=== PATIENT | female | born 1955 | race Caucasian/White ===

== ENCOUNTER 2024-07-15 09:24 | Emergency (ER) | payer BC, SELFPAY ==
[2024-07-15 09:27] VITALS: BP 172/115
--- NOTE | 2024-07-15 10:03 | ED.GENMED ---
History of Present Illness
General
Chief Complaint: Fall
Time Seen by Provider: 07/15/24 09:41
History of Present Illness
History of Present Illness:
Patient is a 68-year-old woman with history of hypertension presenting to the emergency room after a fall. Patient states that she was walking her dog when her dog pulled her and she fell backwards hitting her head. She did not lose consciousness.
He is not on a blood thinner. She denies any neck pain numbness tingling or weakness. She was assisted off the ground. She does have a mild headache but denies any nausea vomiting vision changes. There was no bleeding on scene.
Past History
Past History
ED Past Medical History: HTN and Hypothyroidism
Social History
Tobacco: Non-smoker
Alcohol: None
Drug: None
Personal:
Living: with family
Phy Exam
Physical Exam
Physical Exam:
GENERAL: no acute distress
HEENT: Posterior hematoma, extraocular muscles intact, no signs of entrapment, dentition intact, no other obvious trauma
NECK: no midline tenderness, normal range of motion, no other obvious trauma
BACK: no midline tenderness, no other obvious trauma
CHEST: no tenderness, no flail segment, no subcutaneous emphysema, no other obvious trauma
LUNGS: clear to auscultation bilaterally
CARDIOVASCULAR: regular rate and rhythm
ABDOMEN: soft, non-tender, no masses, no other obvious trauma
PELVIS: stable, no obvious injury
EXTREMITIES: moving all extremities, distal pulses intact, no other obvious trauma
NEUROLOGIC: awake, alert x 3, no focal deficits
Course
Orders/Labs/Results
Orders:
Orders
07/15/24 09:55
CT Cervical Spine W/o Iv Contr Urgent
Comment:
Reason For Exam: fall
CT Head W/o Iv Contrast Urgent
Comment:
Reason For Exam: fall
07/15/24 10:56
Acetaminophen [Tylenol] 650 mg PO NOW STA
Vital Signs
Initial and Last Documented VS:
Initial Vital Signs
Temp Pulse Resp BP Pulse Ox
98.8 F 92 16 172/115 97
07/15/24 09:27 07/15/24 09:27 07/15/24 09:27 07/15/24 09:27 07/15/24 09:27
Last Documented Vital Signs
Temp Pulse Resp BP Pulse Ox
98.8 F 92 16 172/115 97
07/15/24 09:27 07/15/24 09:27 07/15/24 09:27 07/15/24 09:27 07/15/24 09:27
MDM/Problems Addressed
Differential Diagnosis Includes:
Patient is a 68-year-old woman presenting to the emergency department after mechanical fall where she hit her head. Vitals are notable for hypertension and exam does show posterior hematoma with no other signs of traumatic injuries. Concern for
traumatic intracranial injury. Will obtain CT scan. I did offer pain control however patient declined at this time
*Critical Care Note
Total Time (30-74mins, 75-104mins- exclusive of procedures): Not Applicable
Update Note
Update Note:
On reevaluation patient resting comfortably. Patient is agreeable to Tylenol for her headache at this time. CT scan of the head per my interpretation with no obvious intracranial hemorrhage. CT C-spine did show incidental thyroid nodule. Patient
is aware of this and has been followed by her primary care doctor. Strict return precautions given such as new vision changes numbness tingling weakness or worsening/persistent headache. Will discharge at this time
ED Attending Note
-
Portions of this chart may have been created with voice recognition software.� Occasional wrong word or��sound alike� substitutions may have occurred due to the inherent limitations of voice recognition software.
Discharge Plan
Departure
Patient Disposition: Home (Routine Discharge)
Date of Disposition: 07/15/24
Time of Disposition: 10:54
Patient with high blood pressure during this ER visit?: Yes
Discharge Problem:
Fall, Hematoma of scalp
Instructions: Head Injury in Adults (DC)
Prescriptions:
No Action
multivitamin [Daily Multiple] 1 EACH tablet
1 ea PO DAILY
ibuprofen 200 MG capsule
200 mg PO PRN PRN (Reason: pain)
amlodipine-benazepril 1 CAPSULE capsule
1 cap PO DAILY
levothyroxine 50 MCG tablet
50 mcg PO DAILY
calcium carbonate-vitamin D3 1 EACH tablet
1 ea PO DAILY
Referrals:
UNKNOWN,NO INTERVIEW [Family Provider] -
Activity Restrictions/Additional Instructions:
When a patient comes into the Emergency Department, many diagnostic studies such as x-rays & CT Scans are completed to identify injuries. During these diagnostic studies, there are sometimes things like cysts, nodules, tumors, etc. that are
'incidentally found' and seen on these studies. No further workup was required during your hospitalization for your incidental findings, but please follow-up with your Primary Care Physician/Specialist regarding the below incidental findings. Your
Primary Care Physician/Specialist will instruct you/guide you through any further workup.
Your incidental findings:
There is a 5 mm hyperdense nodule within the right hemithyroid. Recommend nonemergent thyroid ultrasound for further evaluation if not previously evaluated.
Interventions
Interventions:
*Risk Screen - Suicide Last Done: 07/15/24 09:29
*Neglect/Abuse Screening Last Done: 07/15/24 09:29
Discharge Date and Time
Print Language: ETHIOPIAN
[2024-07-15] MEDS: TYLENOL 650 MG PO (11:40)
== END 2024-07-15 11:00 | disposition home or self-care (01) ==
LOC: EMR 09:24
PROVIDERS: EMERGENCY PHYSICIAN Student in an Organized Health Care Education/Training Program
DX: S00.03XA Contusion of scalp, initial encounter (principal); W19.XXXA Unspecified fall, initial encounter; Y93.K1 Activity, walking an animal; I10 Essential (primary) hypertension; E03.9 Hypothyroidism, unspecified
CPT/HCPCS: 99284; 70450; 72125

== ENCOUNTER 2024-09-14 18:46 | Emergency (ER) | payer OTHER, SELFPAY ==
[2024-09-14 19:04] VITALS: BP 166/105
--- NOTE | 2024-09-14 22:02 | ED.GENMED ---
History of Present Illness
General
Chief Complaint: Ear Problem
Time Seen by Provider: 09/14/24 21:45
History of Present Illness
History of Present Illness:
69-year-old female presenting with bilateral ear pain right greater than left for the past 1 week. Patient reports tinnitus and hearing loss in her right ear. Patient states that she had blood come out of her right ear 3 days ago which is since
resolved. Patient states that she was seen in urgent care who prescribed eardrops and oral antibiotics which she has been taking with minimal relief. Patient denies fever, sore throat, nasal congestion, or trauma to area.
Past History
Past History
ED Past Medical History: HTN and Hypothyroidism
Social History
Tobacco: Non-smoker
Alcohol: None
Drug: None
Personal:
Living: with family
Phy Exam
Physical Exam
Physical Exam:
General: Alert, no acute distress
Head: NCAT
Eyes: clear conjunctiva
ENT: Perforation right TM with bloody discharge. No visualized perforation left TM, no erythema, no discharge. Posterior oropharynx clear with no erythema. No nasal congestion or rhinorrhea. no mastoid tenderness bilaterally
Neck: supple
Cardiac: regular rate and rhythm, no murmur
Lungs: clear to auscultation bilaterally. No wheezes, rales, or rhonchi. Speaking full unlabored sentences. No respiratory distress.
MSK: no lower extremity edema bilaterally. No deformity
Skin: warm, dry
Neuro: Alert and oriented x3. no focal deficits
Course
Vital Signs
Initial and Last Documented VS:
Initial Vital Signs
Temp Pulse Resp BP Pulse Ox
98.3 F 80 20 166/105 97
09/14/24 19:04 09/14/24 19:04 09/14/24 19:04 09/14/24 19:04 09/14/24 19:04
Last Documented Vital Signs
Temp Pulse Resp BP Pulse Ox
98.3 F 80 20 166/105 97
02/14/25 19:04 09/14/24 19:04 09/14/24 19:04 09/14/24 19:04 09/14/24 19:04
MDM/Problems Addressed
MDM/Problems Addressed:
69-year-old female presenting with bilateral ear pain right greater than left for the past 1 week. Perforated right TM. Will start on ofloxacin drops, stable for discharge with ENT follow-up
*Critical Care Note
Total Time (30-74mins, 75-104mins- exclusive of procedures): Not Applicable
ED Attending Note
-
Portions of this chart may have been created with voice recognition software.� Occasional wrong word or��sound alike� substitutions may have occurred due to the inherent limitations of voice recognition software.
Discharge Plan
Departure
Patient Disposition: Home (Routine Discharge)
Date of Disposition: 09/14/24
Time of Disposition: 22:06
Patient with high blood pressure during this ER visit?: Yes
Discharge Problem:
Perforated tympanic membrane
Instructions: Ear pain - ED discharge instructions
Prescriptions:
New
ofloxacin 0.3 % drops
5 drp otic (ear) BID 14 Days Qty: 10 0RF
No Action
multivitamin [Daily Multiple] 1 EACH tablet
1 ea PO DAILY
ibuprofen 200 MG capsule
200 mg PO PRN PRN (Reason: pain)
amlodipine-benazepril 1 CAPSULE capsule
1 cap PO DAILY
levothyroxine 50 MCG tablet
50 mcg PO DAILY
calcium carbonate-vitamin D3 1 EACH tablet
1 ea PO DAILY
Referrals:
Margot Flores MD [Active] -
Activity Restrictions/Additional Instructions:
Use 5 drops both ears twice daily for 7 days
Take tylenol 975mg every 6 hours and/or ibuprofen 800mg every 8 hours with food as needed for pain
Follow up with ENT next week
Return to the emergency department for new/worsening symptoms
Interventions
Interventions:
*Risk Screen - Suicide Last Done: 09/14/24 22:26
*General Assessment Last Done: 09/14/24 19:04
*Neglect/Abuse Screening Last Done: 09/14/24 22:26
*ED COVID-19 Vaccine History Last Done: 09/14/24 22:26
*Nursing Disposition Last Done: 09/14/24 22:30
Discharge Date and Time
Discharge Date/Time: 09/14/24 22:31
Print Language: [email or web address]
== END 2024-09-14 22:31 | disposition home or self-care (01) ==
LOC: EMR 18:46
PROVIDERS: EMERGENCY PHYSICIAN Emergency Medicine; FAMILY PHYSICIAN Family Medicine
DX: H72.91 Unspecified perforation of tympanic membrane, right ear (principal); H93.11 Tinnitus, right ear; I10 Essential (primary) hypertension; E03.9 Hypothyroidism, unspecified
CPT/HCPCS: 99282